=== PATIENT | female | born 1990 | race Caucasian/White ===

== ENCOUNTER 2017-06-28 15:41 | Emergency (ER) | payer OTHER ==
[~2017-06-28] VITALS: Ht 162.6 cm; Wt 72.0 kg
[2017-06-28 16:03] VITALS: BP 120/76; PULSE 102; RESP 16; TEMP 99; O2SAT 98
--- NOTE | 2017-06-28 17:04 | PD ---
HPI Chief Complaint: Related Problem Time Seen by Provider: 16:44 Travel History International Travel<30 days: No Contact w/Intl Traveler<30days: No Traveled to known affect area: No History of Present Illness HPI 27 -year-old at about 6-10 weeks presents with an episode of vaginal bleeding this afternoon when she went to the bathroom. 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 She denies any pain, fever or other concurrent complaints. She states her blood type is B+. She states that she had a test that was positive and trending upward but she does not know her exact dates. Quality is bright red. Severity is one episode. PFSH Past Medical History ?: LMP: APPROX 10 WEEKS Past Surgical History Surgical History: No Previous Surgery Social History Tobacco Use: No Allergies-Medications (Allergen,Severity, Reaction): Coded Allergies: kiwi (Verified Allergy, Intermediate, HIVES, 06/28/17) tomato (Verified Allergy, Intermediate, HIVES, 06/28/17) Uncoded Allergies: BUGSPRAY (Allergy, Intermediate, HIVES, 06/28/17) SUNBLOCK (Allergy, Intermediate, HIVES, 06/28/17) Reported Meds & Prescriptions Reported Meds & Active Scripts Active No Active Prescriptions or Reported Medications Review of Systems Except as stated in HPI: all other systems reviewed are Neg Physical Exam Narrative GENERAL: 27-year-old female in no apparent distress SKIN: Focused skin assessment warm/dry. HEAD: Atraumatic. Normocephalic. EYES: Pupils equal and round. No scleral icterus. No injection or drainage. ENT: No nasal bleeding or discharge. Mucous membranes pink and moist. NECK: Trachea midline. No JVD. CARDIOVASCULAR: Regular rate and rhythm. RESPIRATORY: No accessory muscle use. Clear to auscultation. Breath sounds equal bilaterally. GASTROINTESTINAL: Abdomen soft, non-tender, nondistended. MUSCULOSKELETAL: No obvious deformities. No clubbing. No cyanosis. No edema. NEUROLOGICAL: Awake and alert. No obvious cranial nerve deficits. Motor grossly within normal limits. Normal speech. PSYCHIATRIC: Appropriate mood and affect; insight and judgment normal. Data Data Last Documented VS Vital Signs Date Time Temp Pulse Resp B/P (MAP) Pulse Ox O2 Delivery O2 Flow Rate FiO2 06/28/17 16:03 99.0 102 16 120/76 (91) 98 Orders Orders Beta Hcg (Quant/Titer) (06/28/17 16:53) Complete Blood Count With Diff (06/28/17 16:53) Basic Metabolic Panel (Bmp) (06/28/17 16:53) Complete Rh (06/28/17 16:53) Us Pelvis (Ques Pr/Ect)W Trans (06/28/17 ) Urinalysis - C+S If Indicated (06/28/17 16:53) Iv Access Insert/Monitor (06/28/17 16:53) Ecg Monitoring (06/28/17 16:53) Ed Urine Pregnancytest Poc (06/28/17 16:53) Labs Laboratory Tests Test 06/28/17 17:00 White Blood Count 7.1 TH/MM3 Red Blood Count 4.93 MIL/MM3 Hemoglobin 14.0 GM/DL Hematocrit 40.9 % Mean Corpuscular Volume 83.0 FL Mean Corpuscular Hemoglobin 28.5 PG Mean Corpuscular Hemoglobin Concent 34.3 % Red Cell Distribution Width 12.2 % Platelet Count 173 TH/MM3 Mean Platelet Volume 9.7 FL Neutrophils (%) (Auto) 65.7 % Lymphocytes (%) (Auto) 24.1 % Monocytes (%) (Auto) 6.4 % Eosinophils (%) (Auto) 3.1 % Basophils (%) (Auto) 0.7 % Neutrophils # (Auto) 4.7 TH/MM3 Lymphocytes # (Auto) 1.7 TH/MM3 Monocytes # (Auto) 0.5 TH/MM3 Eosinophils # (Auto) 0.2 TH/MM3 Basophils # (Auto) 0.0 TH/MM3 CBC Comment DIFF FINAL Differential Comment Urine Color YELLOW Urine Turbidity CLEAR Urine pH 6.0 Urine Specific [place] 1.020 Urine Protein NEG mg/dL Urine Glucose (UA) NEG mg/dL Urine Ketones NEG mg/dL Urine Occult Blood LARGE Urine Nitrite NEG Urine Bilirubin NEG Urine Urobilinogen 0.2 MG/DL Urine Leukocyte Esterase NEG Urine RBC 25-49 /hpf Urine WBC 0-2 /hpf Urine Squamous Epithelial Cells 0-5 /hpf Microscopic Urinalysis Comment CULT NOT INDICATED Blood Urea Nitrogen 10 MG/DL Creatinine 0.65 MG/DL Random Glucose 84 MG/DL Calcium Level 8.5 MG/DL Sodium Level 135 MEQ/L Potassium Level 6.0 MEQ/L Chloride Level 105 MEQ/L Carbon Dioxide Level 24.9 MEQ/L Anion Gap 5 MEQ/L Estimat Glomerular Filtration Rate 109 ML/MIN Human Chorionic Gonadotropin, Quant 2268 MIU/ML MDM Medical Decision Making Medical Screen Exam Complete: Yes Emergency Medical Condition: Yes Medical Record Reviewed: Yes (past history confirmed) Differential Diagnosis Miscarriage, ectopic, threatened miscarriage Narrative Course Will check level, urinalysis, type, CBC and official ultrasound as Limited bedside ultrasound cannot fully visualize Physician Communication Physician Communication oncoming physician to follow workup and reevaluate Scripts No Active Prescriptions or Reported Meds Kelsey Angel MD Jun 28, 2017 17:04
[2017-06-28 17:18] LABS: AUTOMATED NEUTROPHIL # 4.7 TH/MM3 (1.8-7.7); BASOPHIL % 0.7 % (0.0-2.0); EOSINOPHIL # 0.2 TH/MM3 (0-0.4); EOSINOPHIL % 3.1 % (0.0-4.0); HEMATOCRIT 40.9 % (35.0-46.0); LYMPH % 24.1 % (9.0-44.0); LYMPHOCYTE # 1.7 TH/MM3 (1.0-4.8); MEAN CORPUSCULAR HEMOGLOBIN 28.5 PG (27.0-34.0); MEAN CORPUSCULAR HGB CONC 34.3 % (32.0-36.0); MEAN PLATELET VOLUME 9.7 FL (7.0-11.0); MONO % 6.4 % (0.0-8.0); MONOCYTE # 0.5 TH/MM3 (0-0.9); NEUT % 65.7 % (16.0-70.0); PLATELET COUNT 173 TH/MM3 (150-450); RED BLOOD COUNT 4.93 MIL/MM3 (4.00-5.30); RED CELL DISTRIBUTION WIDTH 12.2 % (11.6-17.2); WHITE BLOOD COUNT 7.1 TH/MM3 (4.0-11.0)
[2017-06-28 17:22] LABS: BILIRUBIN, URINE NEG (NEG); BLOOD, URINE LARGE (NEG); GLUCOSE,URINE NEG (NEG); KETONE, URINE NEG (NEG); NITRITE,URINE NEG (NEG); URINE COLOR YELLOW (YELLW/STRAW); URINE LEUKOCYTE ESTERASE NEG (NEG)
[2017-06-28 17:36] LABS: CALCIUM 8.5 MG/DL (8.5-10.1)
[2017-06-28 17:37] LABS: BICARBONATE 24.9 MEQ/L (21.0-32.0)
[2017-06-28 17:40] LABS: CREATININE 0.65 MG/DL (0.50-1.00)
[2017-06-28 17:44] LABS: SQUAMOUS EPITHELIAL CELL URINE 0-5 /hpf (0-5); WBC, URINE 0-2 /hpf (0-5)
--- NOTE | 2017-06-28 19:35 | RADRPT ---
EXAM DATE/TIME: 06/28/2017 18:26 [facility] COMPARISON: No previous studies available for comparison. INDICATIONS : Pelvic pain. LAB(S): Beta-hC MEDICAL HISTORY : Anxiety. SURGICAL HISTORY : Tonsillectomy. ENCOUNTER: Initial ACUITY: 1 day PAIN SCORE: 0/10 LOCATION: Bilateral pelvis MEASUREMENTS: UTERUS: 7.6 x 4.4 x 3.6 cm ENDOMETRIAL STRIPE: 9 mm RIGHT OVARY: 2.3 x 2.3 x 1.4 cm LEFT OVARY: Not visualized. cm FREE FLUID: Yes Cul de sac CROWN RUMP LENGTH: 0.21 = 5 WKS 5 DAYS FHR: Not visualized BPM FINDINGS: No gestational sac, yolk sac or pole demonstrated. Mildly thickened endometrium. Subcentimeter follicles of the right ovary. The left ovary is not clearly visualized by transabdominal or transvaginal imaging. Trace free fluid in the pelvic cul-de-sac. CONCLUSION: No seen and the left ovary cannot be visualized. Nonspecific study, probably missed abortio n although ectopic cannot be excluded with certainty. Right ovary within normal limits for a patient this age. Steven Velarde MD on June 28, 2017 at 19:31 Board Certified Radiologist. This report was verified electronically.
[2017-06-28 20:20] VITALS: BP 114/76; PULSE 96; RESP 14; O2SAT 97
--- NOTE | 2017-06-28 20:21 | PD ---
Physical Exam Date Seen by Provider: Jun 28, 2017 Time Seen by Provider: 20:00 Narrative pt has US reading is no pole no yolk sac, questions Missed AB . US tech put markingings on the Sono images of tiny possible pole no exact measurements noted. beta quannt is 2200 which was 613 3 days ago according to patient , pt is safe for discharge to home has repeat lab in 2 days and follow up out pt GN visit [address] this month in 10 days , i feel it is safe to let her got based on no adnexal pain and her initial quant 10 days ago was 16 and still early enough could be to early to see implantation Missed AB no if ectopic no signs symptoms. I explained to the patient the symptoms to look for for an ectopic I explained to her if she gets localized adnexal pain she must return immediately or heavy bleeding. 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 explained the ultrasound findings to her and the beta quant level to her and she is comfortable with the outpatient follow-up plan Data Data Last Documented VS Vital Signs Date Time Temp Pulse Resp B/P (MAP) Pulse Ox O2 Delivery O2 Flow Rate FiO2 06/28/17 20:35 06/28/17 20:20 96 14 97 Room Air 06/28/17 16:03 99.0 Orders Orders Beta Hcg (Quant/Titer) (06/28/17 16:53) Complete Blood Count With Diff (06/28/17 16:53) Basic Metabolic Panel (Bmp) (06/28/17 16:53) Complete Rh (06/28/17 16:53) Us Pelvis (Ques Pr/Ect)W Trans (06/28/17 ) Urinalysis - C+S If Indicated (06/28/17 16:53) Iv Access Insert/Monitor (06/28/17 16:53) Ecg Monitoring (06/28/17 16:53) Ed Urine Pregnancytest Poc (06/28/17 16:53) Labs Laboratory Tests Test 06/28/17 17:00 White Blood Count 7.1 TH/MM3 Red Blood Count 4.93 MIL/MM3 Hemoglobin 14.0 GM/DL Hematocrit 40.9 % Mean Corpuscular Volume 83.0 FL Mean Corpuscular Hemoglobin 28.5 PG Mean Corpuscular Hemoglobin Concent 34.3 % Red Cell Distribution Width 12.2 % Platelet Count 173 TH/MM3 Mean Platelet Volume 9.7 FL Neutrophils (%) (Auto) 65.7 % Lymphocytes (%) (Auto) 24.1 % Monocytes (%) (Auto) 6.4 % Eosinophils (%) (Auto) 3.1 % Basophils (%) (Auto) 0.7 % Neutrophils # (Auto) 4.7 TH/MM3 Lymphocytes # (Auto) 1.7 TH/MM3 Monocytes # (Auto) 0.5 TH/MM3 Eosinophils # (Auto) 0.2 TH/MM3 Basophils # (Auto) 0.0 TH/MM3 CBC Comment DIFF FINAL Differential Comment Urine Color YELLOW Urine Turbidity CLEAR Urine pH 6.0 Urine Specific [place] 1.020 Urine Protein NEG mg/dL Urine Glucose (UA) NEG mg/dL Urine Ketones NEG mg/dL Urine Occult Blood LARGE Urine Nitrite NEG Urine Bilirubin NEG Urine Urobilinogen 0.2 MG/DL Urine Leukocyte Esterase NEG Urine RBC 25-49 /hpf Urine WBC 0-2 /hpf Urine Squamous Epithelial Cells 0-5 /hpf Microscopic Urinalysis Comment CULT NOT INDICATED Blood Urea Nitrogen 10 MG/DL Creatinine 0.65 MG/DL Random Glucose 84 MG/DL Calcium Level 8.5 MG/DL Sodium Level 135 MEQ/L Potassium Level 6.0 MEQ/L Chloride Level 105 MEQ/L Carbon Dioxide Level 24.9 MEQ/L Anion Gap 5 MEQ/L Estimat Glomerular Filtration Rate 109 ML/MIN Human Chorionic Gonadotropin, Quant 2268 MIU/ML MDM Supervised Visit with ABI: No Differential Diagnosis Missed AB versus ectopic versus early Narrative Course pt counseled of need for follow up 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 Keep your gynecology appointment in 10 days for further evaluation of the early versus a spontaneous loss. Your ultrasound is possibly too early to detect or possibly a loss of the fetus in 10 days it should be more visible on ultrasound. Return to the ER immediately for severe bleeding severe pain in your left or right ovary area otherwise keep her outpatient appointment. Pelvic rest for 2 weeks which is no sex for 2 weeks Scripts No Active Prescriptions or Reported Meds Disposition: 01 DISCHARGE HOME Condition: Good Della,August MD Jun 28, 2017 20:21
== END 2017-06-28 20:40 | disposition home or self-care (01) ==
LOC: PHED 15:41
DX: O20.9 Hemorrhage in early pregnancy, unspecified (principal); O02.1 Missed abortion; Z3A.00 Weeks of gestation of pregnancy not specified
CPT/HCPCS: 76700; 76817; 80048; 81001; 84702; 84703; 85025; 86901